=== PATIENT | female | born 1965 | race Caucasian/White ===

== ENCOUNTER → 2017-01-17 | Outpatient (CLI) | payer OTHER | LOC: BRMIMAGING 15:38 | PROVIDERS: ATTEND Physician Assistant | DX: M25.70 Osteophyte, unspecified joint (principal) | CPT/HCPCS: 73000-PO ==

== ENCOUNTER → 2017-12-30 | Outpatient (CLI) | payer OTHER | LOC: BRMIMAGING 12:09 | DX: Z12.31 Encounter for screening mammogram for malignant neoplasm of breast (principal); Z80.3 Family history of malignant neoplasm of breast ==